=== PATIENT | male | born 1985 | race Two or more races ===

== ENCOUNTER → 2022-06-26 | Day surgery (SDC) | payer SELFPAY ==
[~2022-06-26] MED LIST: Acetaminophen/oxyCODONE 325-5 MG Tab PO PRN; Bupivacaine 0.5% 30 ML SDV ONE; Bupivacaine 0.5%/EPINEPHrine 1:200,000 50 ML MDV ONE; HYDROmorphone 0.5 MG/0.5 ML Syringe IVPUSH ONE; HYDROmorphone 0.5 MG/0.5 ML Syringe IVPUSH PRN; HYDROmorphone 0.5 MG/0.5 ML Syringe ONE; HYDROmorphone 1 MG/ML Syringe IVPUSH ONE; Iopamidol 612 MG/ML 100 ML Bottle IVPUSH ONE; Ketorolac 30 MG/ML SDV ONE; Lactated Ringers 1,000 ML IV SCH; Lidocaine 1% 2 ML ONE; Lidocaine 1% with EPINEPHrine 1:100,000 20 ML MDV ONE; Ondansetron 4 MG/2 ML SDV IVPUSH ONE; Ondansetron 4 MG/2 ML SDV IVPUSH PRN; Ondansetron 4 MG/2 ML SDV ONE; Propofol 200 MG/20 ML SDV ONE; Rocuronium 50 MG/5 ML Vial ONE; Sodium Chloride 0.9% 10 ML Syringe FLUSH ONE; Sugammadex Sodium 200 MG/2 ML VIAL ONE; cefTRIAXone 1 GM in Sodium Chloride 0.9% 100 ML IV ONE; fentaNYL 100 MCG/2 ML SDV IVPUSH PRN; fentaNYL 100 MCG/2 ML SDV ONE
== END | disposition home or self-care (01) ==
LOC: JD.ED 06:25 → JD.SDS 12:26
PROVIDERS: ATTEND Surgery
DX: K80.00 Calculus of gallbladder with acute cholecystitis without obstruction (principal); K21.9 Gastro-esophageal reflux disease without esophagitis; F17.210 Nicotine dependence, cigarettes, uncomplicated; Z79.899 Other long term (current) drug therapy
CPT/HCPCS: 36415; 47562; 74177; 76705; 80053; 80307; 82977; 83690; 85025; 85610; 85730; J0696; J1170; J1885; J2405; J2704; J3010; J3490; J7120; Q9967; 96361; 96365; 96375; 96376; 99285; 99285-25